=== PATIENT | female | born 2000 | race Caucasian/White ===

== ENCOUNTER → 2022-11-06 15:24 | Outpatient (BNVA) | payer BC, SELFPAY | PROVIDERS: Family Provider Nurse Practitioner; Visit Provider Obstetrics & Gynecology | DX: Z01.419 Encounter for gynecological examination (general) (routine) without abnormal findings (principal) | CPT/HCPCS: 88175 ==

== ENCOUNTER 2024-08-09 08:00 | Outpatient (CLI) | payer OTHER, SELFPAY ==
--- NOTE | 2024-08-09 08:03 | US_ITS ---
WS: [id number] US pelv w/transvag [id number] HISTORY: POLYCYSTIC OVARIAN SYNDROME COMPARISON: 07/29/2016 Uterus: 7.8 cm x 4.5 cm x 3.0 cm. Normal size anteverted uterus. No fibroid or mass. Endometrium: 0.4 cm. Normal. Right ovary: 2.7 cm x 1.7 cm x 2.4 cm. Normal size and vascularity, no cystic or solid masses. Left ovary: Not identified. No adnexal mass. No free fluid in the cul-de-sac. US/US pelv w/transvag [id number] IMPRESSION: 1. Normal uterus and endometrium. 2. LEFT ovary not visualized. 3. Normal RIGHT ovary.
== END 2024-08-09 08:01 | disposition home or self-care (01) ==
LOC: RAD 08:00
PROVIDERS: Family Provider Nurse Practitioner; PCP Nurse Practitioner Family; Visit Provider Nurse Practitioner Family
DX: N93.9 Abnormal uterine and vaginal bleeding, unspecified (principal); E28.2 Polycystic ovarian syndrome
CPT/HCPCS: 76830; 76856

== ENCOUNTER → 2025-02-22 10:30 | Outpatient (BNVA) | payer OTHER, SELFPAY | PROVIDERS: Family Provider Nurse Practitioner; PCP Nurse Practitioner Family; Visit Provider Emergency Medicine | DX: J45.909 Unspecified asthma, uncomplicated (principal) | CPT/HCPCS: 71046 ==

== ENCOUNTER 2025-08-28 23:08 | Emergency (ER) | payer OTHER, SELFPAY ==
[2025-08-28 23:09] VITALS: BP 151/96; PULSE 111; RESP 20; TEMP 36.8; O2SAT 93; BMI 26.6
--- OUTSIDE RECORDS SUMMARY | 2025-08-28 23:15 | XMS_ITS | Encounter Summary ---
Author Organization [facility] Address [address] [place] [address] Care Team Providers Care Director Online Marketing Name Role Phone Unavailable Primary Care Provider Unavailabl e Encounter Details Date Type Department Care Team (Late st Contact Info) Description 1999 Outpatient Historical [facility]- [place] [address] [place] [address] Social History Tobacco Use Types Packs/Day Years Used Date Smoking Tobacco: Never Assessed Comments Unknown Sex and Gender Information Value Date Recorded Sex Assigned at Not on file 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
--- OUTSIDE RECORDS SUMMARY | 2025-08-28 23:15 | XMS_ITS | Encounter Summary ---
Author Organization [facility] Address [address] [place] [address] Care Team Providers Care Supervisor Title Name Role Phone Unavailable Primary Care Provider Unavailabl e Encounter Details Date Type Department Care Team (Late st Contact Info) Description 03/26/2002 Outpatient Historical [facility]- [place] [address] [place] [phone] Kiersten Valenzuela MD NO ADDRESS ON FILE VACCINE FOR DTP (Primary Dx); VACCINE [id number] ; Vaccine for poliomyelitis; VACCINE DIS COMBINATIONS NEC Social History Tobacco Use Types Packs/Day Years Used Date Smoking Tobacco: Never Assessed Comments Unknown Sex and Gender Information Value Date Recorded Sex Assigned at Not on file Legal Sex Female 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
--- OUTSIDE RECORDS SUMMARY | 2025-08-28 23:15 | XMS_ITS | Clinical Summary ---
Author Organization [facility] Address [address] Delgado: [place] [address] Care Team Providers Care Leather Roller Name Role Phone Unavailable Primary Care Provider Unavailabl e Allergies Active Allergy Reactions Criticality Noted Date Comments Tree Nuts Anaphylaxis High 04/25/2022 Immunizations Immunization Administration Dates Next Due (M-M-R II/PRIORIX)(12 MO UP) MEASLES, MUMPS AND RUBELLA VIRUS VACCINE, 0.5 ML IM/SUBCUT 03/26/2002 Dt Dtp Dtap Vaccine 10/05/2002,03/26/2002,1998 HIB, Unspecified Formulation 03/26/2002,04/20/19 99 Hepatitis B Vaccine 03/26/2002,1999 IPV/OPV 03/26/2002,1999 Influenza Seasonal Unspecifi ed Formulation IM 10/05/2002 Social History Tobacco Use Types Packs/Day Years Used Date Smoking Tobacco: Never Assessed Comments Unknown Sex and Gender Information Value Date Recorded Sex Assigned at Not on file 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 Sex Female 1:03 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 Gender Identity Not on file Sexual Orientation Not on file Last Filed Vital Signs Vital Sign Reading Time Taken Comments Blood Pressure 133/79 04/25/2022 4:02 AM CDT Pulse 78 04/25/2022 4:02 AM CDT Temperature 36.5 C (97.7 F) 04/25/2022 4:02 AM CDT Respiratory Rate 16 04/25/2022 4:02 AM CDT Oxygen Saturation 100% 04/25/2022 4:02 AM CDT Inhaled Oxygen Concentration - - Weight 87.7 kg (193 lb 5.5 oz) 04/25/2022 12:14 AM CDT Height 172.7 cm (5' 8 ) 04/25/2022 12:14 AM CDT Body Mass Index 29.4 04/25/2022 12:14 AM CDT Plan of Treatment Health Maintenance Due Date Last Done Comments HEPATITIS B VACCINES (3 of 3 - 3-dose series) 05/21/2002 03/26/2002, 1999 HPV VACCINES (1 - 3-dose series) 2014 DTAP/TDAP/TD VACCINES (4 - Tdap) 2018 10/05/2002, 03/26/2002, 1999 CERVICAL CANCER SCREENING 02/24/2020 HPV/Cotest (21-29) 02/24/2020 PAP SMEAR 02/24/2020 INFLUENZA VACCINE (#1) 2025 10/05/2002 CHLAMYDIA SCREENING (ANNUAL) 11-24 YEARS Discontinued 04/25/2022 Procedures Procedure Name Priority Date/Time Associated Diagnosis Comments GC/CHLAMYDIA, UROGENITAL Stat 04/25/2022 5:24 AM CDT from Last 3 Months or Most Recently Relevant to Health Maintenance Results * GC/CHLAMYDIA, UROGENITAL (04/25/2022 5:24 AM CDT) CHLAMYDIA DNA AMPLIFICATION NOT DETECTED Not Detected 04/25/2022 7:23 AM CDT [facility] GC DNA AMPLIFICATION NOT DETECTED Not Detected 04/25/2022 7:23 AM CDT [facility] Genital SWAB OF ENDOCERVIX / Unknown Collection / Unknown 04/25/2022 5:24 AM CDT 04/25/2022 5:35 AM CDT Narrative [facility] - 04/25/2022 7:23 AM CDT Results should not be used for the evaluation of suspected sexual abuse or for other medico-legal indications. The only legally accepted results are from culture. Results cannot be used to assess therapeutic success or failure since nucleic acids may persist following antimicrobial therapy. Cheryl Matthew MD MICROBIOLOGY - GENERAL ORDERABLE S Final Result [id number] [address] [address] [place] [address] from Last 3 Months or Most Recently Relevant to Health Maintenance Insurance [facility] BLUE ACCESS/TRUE BLUE PPO
--- OUTSIDE RECORDS SUMMARY | 2025-08-28 23:15 | XMS_ITS | Encounter Summary ---
Author Organization [facility] Address [address] [place] [address] Care Team Providers Care Dialysis Chief Equipment Technician Name Role Phone Unavailable Primary Care Provider Unavailabl e Encounter Details Date Type Department Care Team (Late st Contact Info) Description 10/05/2002 Outpatient Historical [facility]- [place] [address] [place] [phone] Kiersten Valenzuela MD NO ADDRESS ON FILE VACCINE FOR INFLUENZA (Primary Dx); VACCINE FOR DTP Social History Tobacco Use Types Packs/Day Years Used Date Smoking Tobacco: Never Assessed Comments Unknown Sex and Gender Information Value Date Recorded Sex Assigned at Not on file 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
--- OUTSIDE RECORDS SUMMARY | 2025-08-28 23:15 | XMS_ITS | Encounter Summary ---
Author Organization [facility] Address [address] [place] [address] Care Team Providers Care Front Desk Administrator Name Role Phone Unavailable Primary Care Provider Unavailabl e Encounter Details Date Type Department Care Team (Late st Contact Info) Description 1999 Outpatient Historical [facility]- [place] [address] [place] [address] Kiersten Valenzuela MD NO ADDRESS ON FILE Routine child health exam (Primary Dx) Social History Tobacco Use Types Packs/Day Years Used Date Smoking Tobacco: Never Assessed Comments Unknown Sex and Gender Information Value Date Recorded Sex Assigned at Not on file 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
--- OUTSIDE RECORDS SUMMARY | 2025-08-28 23:15 | XMS_ITS | Encounter Summary ---
Author Organization [employer] [facility] Address [address] [place] [address] Care Team Providers Care Dynamite Packing Machine Operator Name Role Phone Unavailable Primary Care Provider Unavailabl e Encounter Details Date Type Department Care Team (Latest Contact Info) Description 04/02/2002 Outpatient Historical [facility] [place] HURST, Rudolph Benton MD [address] [place] [address] LEX HIP DEFORMITY NEC (Primary Dx); FLAT FOOT; Pain in limb Social History Tobacco Use Types Packs/Day Years Used Date Smoking Tobacco: Never Assessed Comments Unknown Sex and Gender Information Value Date Recorded Sex Assigned at Not on file 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
--- OUTSIDE RECORDS SUMMARY | 2025-08-28 23:15 | XMS_ITS | Encounter Summary ---
Author Organization [facility] Address [address] [place] [address] Care Team Providers Care Clinical Nursing Instructor Name Role Phone Unavailable Primary Care Provider Unavailabl e Encounter Details Date Type Department Care Team (Late st Contact Info) Description 1999 Outpatient Historical [facility]- [place] [address] [place] [address] Kiersten Valenzuela MD NO ADDRESS ON FILE Routine child health exam (Primary Dx) Social History Tobacco Use Types Packs/Day Years Used Date Smoking Tobacco: Never Assessed Comments Unknown Sex and Gender Information Value Date Recorded Sex Assigned at Not on file 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
--- OUTSIDE RECORDS SUMMARY | 2025-08-28 23:15 | XMS_ITS | Clinical Summary ---
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
[2025-08-28 23:20] VITALS: BP 148/113; PULSE 116; RESP 20; O2SAT 93
--- NOTE | 2025-08-28 23:23 | XRR_ITS ---
PROCEDURE INFORMATION: Exam: XR Chest Exam date and time: 08/28/2025 11:23 PM Age: 25 years old Clinical indication: Shortness of breath; Additional info: SOB TECHNIQUE: Imaging protocol: Radiologic exam of the chest. Views: 1 view. COMPARISON: CR XR chest 2V* [id number] 02/22/2025 10:32 AM FINDINGS: Lungs: Unremarkable. No consolidation. Pleural spaces: Unremarkable. No pleural effusion. No pneumothorax. Heart/Mediastinum: Unremarkable. No cardiomegaly. Bones/joints: Unremarkable. XR/XR chest 1V portable [id number] IMPRESSION: No acute findings.
[2025-08-28] MEDS: methylPREDNISolone sod succ 125 mg/2 mL INJ IV (23:33)
[2025-08-28] MEDS: magnesium sulfate premix 2 GM/50 ML PIGGYBACK IV (23:33)
[2025-08-28 23:34] VITALS: PULSE 107; RESP 16; O2SAT 94
[2025-08-28 23:35] VITALS: PULSE 118; RESP 16; O2SAT 94
[2025-08-28 23:48] LABS: HCG, Serum Qual Negative (Negative); Hematocrit 45.7 % (36-47); Hemoglobin 16.00 g/dL (11.27-16.99); Mean Corpuscular HGB Conc 35.0 g/dL (30-55); Mean Corpuscular Hemoglobin 31.7 pg (27-33); Mean Corpuscular Volume 90.5 fl (85-98); Nucleated Red Blood Cells % 0 %; Platelet Count 367 10^3/cmm (157-399); Red Blood Count 5.05 10^6/uL (3.85-5.65); White Blood Count 13.52 10^3/uL (3.29-11.43)
[2025-08-29] LABS: Lactic Sepsis W/Reflex 1.1 mmol/L (0.5-2.2)
[2025-08-29 00:10] VITALS: BP 136/89; PULSE 98; RESP 20; O2SAT 94
[2025-08-29 00:13] LABS: Alanine Aminotransferase 19 U/L (0-33); Albumin Level 4.7 g/dL (3.5-5.2); Alkaline Phosphatase 67 U/L (35-105); Anion Gap 18.7 (5-19); Aspartate Amino Transferase 16 U/L (0-32); Blood Urea Nitrogen 7 mg/dL (6-20); Calcium 9.5 mg/dL (8.5-10.5); Carbon Dioxide 21 mmol/L (22-29); Chloride 104 mmol/L (98-107); Creatinine Clr Calc Pharmacy 188.6632; Globulin 3.1 g/dL (1.3-4.6); Glucose 149 mg/dL (65-115); NT Pro B Type Natriuretic Pept 221 pg/mL (0-125); Osmolality Calculated 291 mOsm/kg (285-295); Potassium 3.7 mmol/L (3.5-5.1); Sodium 140 mmol/L (136-145); Total Protein 7.8 g/dL (6.6-8.7)
--- NOTE | 2025-08-29 00:51 | W.ED.SOB ---
HPI - SOB/Dyspnea General: Chief Complaint: Shortness of Breath/Dyspnea Stated Complaint: SOB Time Seen by Provider: 08/28/25 23:15 History of Present Illness: HPI Narrative: Patient is a 25-year-old female who presents with acute respiratory distress that began yesterday and has worsened throughout today. She reports difficulty breathing, wheezing, and chest pain rated 4-5/10 located anteriorly and in her back. Patient notes that coughing is difficult due to respiratory distress. She experienced elevated temperature yesterday but denies current fever. Patient reports similar episodes multiple times over the past year, with two urgent care visits (one year ago and one a few months ago) where she was prescribed an inhaler. She has had intermittent symptoms between these episodes but not severe enough to seek medical attention. Of note, patient had a 4-hour car ride on Friday (3 days ago), though reports frequent long car trips. 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 Related Data Home Medications ?Medication ?Instructions ?Recorded ?Confirmed fluoxetine 10 mg capsule 10 mg PO DAILY 09/09/22 05/16/25 epinephrine 0.3 mg/0.3 mL 0.3 mg IM Q4H PRN 11/06/22 05/16/25 injection, auto-injector Previous Rx's ?Medication ?Instructions ?Recorded metformin 500 mg tablet 500 mg PO BID #180 tabs 08/24/20 ibuprofen 600 mg tablet 600 mg PO Q8H PRN pain #30 tabs 09/09/22 albuterol sulfate 90 mcg/actuation 2 puff inhalation Q4H PRN 11/15/24 aerosol inhaler (Ventolin HFA) shortness of breath or wheezing #8.5 grams norethindrone acetate 1.5 1 tab PO DAILY #63 tabs 02/21/25 mg-ethinyl estradiol 30 mcg tablet albuterol sulfate 90 mcg/actuation 2 inh inhalation Q4H PRN shortness 02/22/25 aerosol inhaler (Ventolin HFA) of breath or wheezing #8.5 grams azelastine 205.5 mcg (0.15 %) 2 spray intranasal DAILY #30 mL 02/22/25 nasal spray (Astepro Allergy) azithromycin 500 mg tablet 500 mg PO DAILY 5 days #5 tabs 02/22/25 (Zithromax) azithromycin 500 mg tablet See Rx Instructions PO .COMPLEX #3 02/24/25 tabs doxycycline hyclate 100 mg tablet 100 mg PO BID 7 days #14 tabs 08/29/25 prednisone 20 mg tablet 60 mg (3 x 20 mg) PO DAILY 5 days 08/29/25 #15 tabs Allergies Allergy/AdvReac Type Severity Reaction Status Date / Time tree nut Allergy Severe ALGY-Anaphy Verified 05/16/25 11:11 laxis PFSH ED PFSH: Family History Family/Other Heart disease Diabetes Denies family history of Colon cancer Ovarian cancer Hypercholesteremia Breast cancer Hypertension Uterine cancer Thyroid disease Stroke Social History Smoking and tobacco/nicotine status: current every day tobacco/nicotine user Physical Exam Const: GENERAL APPEARANCE: cooperative and ill appearing (mildly); not frail appearing HENMT: COMMON NORMALS: normocephalic, atraumatic and Normal external nose present HEAD & SCALP: normocephalic and atraumatic FACE & SINUS: normal facial exam and face symmetric NOSE: Normal external nose present Eye: COMMON NORMALS: Equal, round and reactive pupils present and EOMs intact bilaterally PUPIL: Yes Equal, round and reactive pupils present Neck/C-Spine: GENERAL: Yes trachea midline Chest: CHEST: Yes Symmetrical chest wall rise Resp: EFFORT & INSPECTION: Yes tachypneic and Yes labored AUSCULTATION: wheezes and diminished lung sounds Cardio: COMMON NORMALS: regular rhythm RATE: tachycardic RHYTHM: regular rhythm GI: COMMON NORMALS: Normal to inspection, nondistended, normoactive bowel sounds present Extremity: COMMON NORMALS: no pedal edema Neuro: LACHELLE COMA SCALE: document GCS findings Lachelle coma scale eye opening: Spontaneous Vaughn coma scale verbal response: Orientated Lachelle coma scale motor response: Obey commands Vaughn coma scale total score: 15 SENSORY EXAM: Yes extremities (intact) Psych: COMMON NORMALS: speech normal SPEECH: Yes normal speech Skin: COMMON NORMALS: no rashes or lesions noted GENERAL SKIN EXAM: no rashes or lesions noted Course Vital Signs: Vital signs: Vital Signs Temperature 98.2 F 08/28/25 23:09 Pulse Rate 75 08/29/25 01:45 Respiratory Rate 16 08/29/25 01:45 Blood Pressure 125/82 08/29/25 01:45 Pulse Oximetry 94 08/29/25 01:45 Oxygen Delivery Me thod Room Air 08/29/25 00:10 MDM - SOB/Dyspnea Medical Decision Making Initially tachycardic with chest discomfort, significant wheezing. After DuoNeb treatment, Solu-Medrol, magnesium, she feels much better she says saturations have remained above 92% on room air. Heart rate is down to 85. Blood pressure 130/94. White blood cell count is 13.5. Chest x-ray is negative. BMP is not remarkable. Her D-dimer is nondetectable. Her BNP is slightly elevated at 221. She is not . Lactic acid is normal. With improvement in her symptoms, she will be allowed discharge on steroids, inhaler, and will cover with antibiotic. With multiple episodes, would consider adding Flovent when she is done with steroids. Outpatient follow-up with PCP. Return for worsening symptoms. Lab Data 08/28/25:08/28/25: Labs/Radiology: Radiology Impressions Chest X-Ray 08/28/25 23: IMPRESSION: No acute findings. Laboratory Results WBC 13.52 10^3/uL (3.29-11.43) H 08/28/25: RBC 5.05 10^6/uL (3.85-5.65) 08/28/25: Hgb 16.00 g/dL (11.27-16.99) 08/28/25: Hct 45.7 % (36-47) 08/28/25: MCV 90.5 fl (85-98) 08/28/25: MCH 31.7 pg (27-33) 08/28/25: MCHC 35.0 g/dL (30-55) 08/28/25: RDW 12.0 % (12.1-15.1) L 08/28/25: Plt Count 367 10^3/cmm (157-399) 08/28/25: MPV 9.6 fL (7.4-10.4) 08/28/25: Neut % (Auto) 77.0 % 08/28/25: Lymph % (Auto) 9.8 % 08/28/25 23:25 [place] % (Auto) 6.5 % 08/28/25 23:25 Eos % (Auto) 5.7 % 08/28/25 23:25 Baso % (Auto) 0.7 % 08/28/25 23:25 Neut # (Auto) 10.41 10^3/uL (1.8-7.7) H 08/28/25 23:25 Lymph # (Auto) 1.3 10^3/uL (0.8-4.8) 08/28/25 23:25 Newport # (Auto) 0.9 10^3/uL (0.2-0.9) 08/28/25: Eos # (Auto) 0.8 10^3/uL (0.0-0.8) 08/28/25:25 Baso # (Auto) 0.1 10^3/uL (0.0-0.1) 08/28/25 23: Nucleated RBC % (auto) 0 % 08/28/25: Nucleated RBCs # 0.0 /100WBC 08/28/25 23:25 D-Dimer <= 0.27 ug/mLFEU (0-0.59) 08/28/25 23:25 Sodium 140 mmol/L (136-145) 08/28/25 23:25 Potassium 3.7 mmol/L (3.5-5.1) 08/28/25 23:25 Chloride 104 mmol/L (98-107) 08/28/25 23:25 Carbon Dioxide 21 mmol/L (22-29) L 08/28/25 23:25 Anion Gap 18.7 (5-19) 08/28/25 23:25 BUN 7 mg/dL (6-20) 08/28/25 23:25 Creatinine 0.5 mg/dL (0.5-0.9) 08/28/25 23:25 GFR Calculation 149.1 mL/min (90-130) H 08/28/25 23:25 Glucose 149 mg/dL (65-115) H 08/28/25 23:25 Calculated Osmolality 291 mOsm/kg (285-295) 08/28/25 23:25 Lactic Acid 1.1 mmol/L (0.5-2.2) 08/28/25 23:25 Calcium 9.5 mg/dL (8.5-10.5) 08/28/25 23:25 Total Bilirubin 0.3 mg/dL (0.15-1.2) 08/28/25 23:25 AST 16 U/L (0-32) 08/28/25 23:25 ALT 19 U/L (0-33) 08/28/25 23:25 Alkaline Phosphatase 67 U/L (35-105) 08/28/25 23:25 NT-Pro-B Natriuret Pep 221 pg/mL (0-125) H 08/28/25 23:25 Total Protein 7.8 g/dL (6.6-8.7) 08/28/25 23: Albumin 4.7 g/dL (3.5-5.2) 08/28/25 23:25 Globulin 3.1 g/dL (1.3-4.6) 08/28/25 23:25 HCG, Qual Negative (Negative) 08/28/25 23:25 Influenza A (PCR) Negative (Negative) 08/29/25 00:10 Influenza Type B (PCR) Negative (Negative) 08/29/25 00:10 RSV (PCR) Negative (Negative) 08/29/25 00:10 SARS-CoV-2 (PCR) Negative (Negative) 08/29/25 00:10 All radiology interpretation(s) finalized by discharge Discharge Plan Discharge Patient Disposition: Home Clinical Impression: Acute bronchitis, RAD (reactive airway disease) with wheezing Condition: Stable Prescriptions: New prednisone 20 mg tablet 60 mg PO DAILY 5 Days Qty: 15 0RF doxycycline hyclate 100 mg tablet 100 mg PO BID 7 Days Qty: 14 0RF Discontinued prednisone 20 mg tablet 20 mg PO DAILY 5 Days Qty: 15 0RF No Action norethindrone ac-eth estradiol 1.5-30 mg-mcg tablet 1 tab PO DAILY Qty: 63 4RF Rx Instructions: allow for early refills for continuous cycling azithromycin 500 mg tablet See Rx Instructions PO .COMPLEX Qty: 3 0RF Rx Instructions: For 500 mg dose pack: take 500 mg once daily for 3 days PO albuterol sulfate [Ventolin HFA] 90 mcg/actuation HFA aerosol inhaler 2 puff inhalation Q4H PRN (Reason: shortness of breath or wheezing) Qty: 8.5 0RF albuterol sulfate [Ventolin HFA] 90 mcg/actuation HFA aerosol inhaler 2 inh inhalation Q4H PRN (Reason: shortness of breath or wheezing) Qty: 8.5 0RF azithromycin [Zithromax] 500 mg tablet 500 mg PO DAILY 5 Days Qty: 5 0RF azelastine [Astepro Allergy] 205.5 mcg (0.15 %) spray,non-aerosol 2 spray intranasal DAILY Qty: 30 0RF Rx Instructions: administer into each nostril epinephrine 0.3 mg/0.3 mL auto-injector 0.3 mg IM Q4H PRN fluoxetine 10 mg capsule 10 mg PO DAILY ibuprofen 600 mg tablet 600 mg PO Q8H PRN (Reason: pain) Qty: 30 0RF metformin 500 mg tablet 500 mg PO BID Qty: 180 0RF Discharge Orders: Discharge ED (Routine); Ordered 08/29/25 Ordered By: Dereck Grider Referrals: Blue,Brenda, ORNAMENTAL METAL WORKER HELPER [Primary Care Provider, Nurse Practitioner] - 1-3 days Patient Instructions: Acute Bronchitis (ED), Wheezing (ED), Opioid Safety, Pain Management, Patient Portal & Itzel Instructions Activity Restrictions/Additional Instructions: Return immediately for increased trouble breathing, fever despite antibiotics, worsening chest pain, any other concerning symptoms. Call your doctor tomorrow for follow-up appointment this week. Medications as directed. Use your albuterol inhaler every 4 hours while awake for the first 48 hours, then you may use it as needed following that. Stay hydrated. Print Language: Portuguese Coding Level of Care Code ED Cap Parts Cutter for Mamta Ralph
[2025-08-29 00:53] LABS: Respiratory Syncytial Virus Ce NEGATIVE (Negative); SARS-CoV-2 PCR NEGATIVE (Negative)
[2025-08-29 01:45] VITALS: BP 125/82; PULSE 75; RESP 16; O2SAT 94
[2025-08-29] MEDS: albuterol 8 gm MDI 2 PUFF INHALATION (02:44)
== END 2025-08-29 01:50 | disposition home or self-care (01) ==
PROVIDERS: Emergency Provider Emergency Medicine; PCP Nurse Practitioner Family
DX: J20.9 Acute bronchitis, unspecified (principal); J45.909 Unspecified asthma, uncomplicated; Z11.52 Encounter for screening for COVID-19; Z79.84 Long term (current) use of oral hypoglycemic drugs; Z72.0 Tobacco use
CPT/HCPCS: 36415; 71045; 80053; 83605; 83880; 84703; 85025; 85378; 87637; 94640; 96365; 96375; 99284; J2919; J3475; J3535; J9999